=== PATIENT | male | born 1950 | race Caucasian/White ===

== ENCOUNTER → 2021-10-10 | Outpatient (CLI) | payer MEDICARE | LOC: MRI 12:23 | PROVIDERS: ATTEND Psychiatry & Neurology Neurology | DX: R41.89 Other symptoms and signs involving cognitive functions and awareness (principal); R26.9 Unspecified abnormalities of gait and mobility; R63.4 Abnormal weight loss | CPT/HCPCS: 70551 ==

== ENCOUNTER → 2023-07-31 | Outpatient (REF) | payer MEDICARE ==
[~2023-07-31] MED LIST: LIDOCAINE HCL 1% LOCAL INJ 20 ML VIAL ONE
[2023-07-31 10:14] LABS: HEMOGLOBIN 14.6 g/dL (14.0-18.0)
[2023-07-31 10:24] LABS: INR 0.96
[2023-07-31 10:25] LABS: PARTIAL THROMBOPLASTIN TIME 26.2 seconds (23.8-35.5)
[2023-07-31 13:36] LABS: TOTAL PROTEIN,CSF 84.9 mg/dL (15-40)
[2023-07-31 14:47] LABS: APPEARANCE,CSF CLEAR (CLEAR); COLOR,CSF COLORLESS (COLORLESS); RED BLOOD CELL,CSF 2 cells/uL (0-10); TUBE NUMBER 2; WHITE BLOOD CELL,CSF 0 cells/uL (0-5)
== END ==
LOC: DX 09:43
PROVIDERS: ATTEND Psychiatry & Neurology Neurology
DX: G93.89 Other specified disorders of brain (principal); R26.9 Unspecified abnormalities of gait and mobility; R41.89 Other symptoms and signs involving cognitive functions and awareness
CPT/HCPCS: 36415; 62328; 82945; 84157; 85014; 85049; 85610; 85730; 89051; J2001